=== PATIENT | female | born 1955 | race Caucasian/White ===

== ENCOUNTER 2019-08-01 09:18 | Inpatient (IN) | payer BC, OTHER ==
[~2019-08-01] VITALS: Ht 160 cm; Wt 78.4 kg
[2019-08-01] MEDS ORDERED: MORPHINE SULFATE 4 MG/ML SYR/VIAL IV ONE (10:00)
[2019-08-01] MEDS ORDERED: ONDANSETRON HCL 4 MG/2 ML VIAL IV ONE (10:00)
[2019-08-01] MEDS ORDERED: SODIUM CHLORIDE 0.9% 1,000 ML IV ONE ×2 (12:08)
[2019-08-01 13:26] LABS: Basophils # (auto) 0 uL; Basophils % (auto) 0.3 % (0.0-2.0); Eosinophils # (auto) 0 uL; Hematocrit 39.6 % (36.0-46.0); Hemoglobin 13.9 g/dL (12.2-16.2); Lymphocytes # (auto) 0.6 uL; Lymphocytes % (auto) 3.7 % (10.0-50.0); Mean Corpuscular Hemoglobin 30.9 pg (28.0-32.0); Mean Corpuscular Hgb Conc. 35.2 g/dL (32.0-36.0); Mean Corpuscular Volume 87.9 fL (80.0-100.0); Monocytes # (auto) 0.4 uL; Monocytes % (auto) 2.3 % (0.0-12.0); Neutrophils # (auto) 14.8 uL; Neutrophils % (auto) 93.7 % (37.0-80.0); Platelet Count (auto) 198 10^3/uL (140-450); Red Blood Cells 4.51 10^6/uL (4.0-5.20); Red Cell Distribution Width 13.3 % (11.8-14.3); White Blood Cell 15.8 10^3/uL (4.4-10.8)
[2019-08-01 13:43] LABS: Albumin 3.7 g/dL (3.4-5.0); BUN/Creatinine Ratio 12.5; Calcium 8.6 mg/dL (8.5-10.1); INR 1.02 (0.9-1.15); Partial Thromboplastin Time 26.3 sec (23.64-32.05); Potassium 3.6 mmol/L (3.5-5.1)
[2019-08-01 13:47] LABS: Bilirubin, Total 0.4 mg/dL (0.2-1.0); Total Protein 6.9 g/dL (6.4-8.2)
[2019-08-01] MEDS ORDERED: KETAMINE 50mg/ML 10ml Vial (200mg/10ml) IV ONE (14:00)
[2019-08-01 14:04] LABS: Urine Bacteria FEW /hpf (None Seen); Urine Blood Negative /uL (Negative); Urine Specific Gravity 1.016 (1.001-1.035); Urine WBC 7 /hpf (0 - 5)
[2019-08-01] MEDS ORDERED: DOCUSATE SOD 100 MG CAP PO PRN (17:00)
[2019-08-01] MEDS ORDERED: cefTRIAXone 1GM/50ML D5W 50 ML IV ONE (17:00)
[2019-08-01] MEDS ORDERED: HYDROcodone-ACET 5/325MG TAB PO PRN (17:00)
[2019-08-01] MEDS ORDERED: MORPHINE SULF INJ 2 MG/ML SYRINGE 1ML IV PRN ×2 (17:00)
[2019-08-01] MEDS ORDERED: NITROGLYCERIN 0.4 MG SL TAB SL PRN (17:00)
[2019-08-01] MEDS ORDERED: ONDANSETRON HCL 4 MG/2 ML VIAL IV PRN (17:00)
--- NOTE | 2019-08-01 19:55 | NUR ---
MS admit from [facility] admitted to tele/MS. Patient oriented to SVETLANA HARVEY RN AND GUILLERMO PATTERSON RNS, unit, room, bed, and unit policies regarding patient care and visiting hours. Patient weighed by bedscale and encouraged to call if they need something. All questions and concerns addressed, patient verbalized understanding. Signed: 08/02/19 at 426 by ZOHREH GONSALVES SN <Co-Signature Required> Co-Signed: 08/02/19 at 426 by Svetlana Harvey RN
[2019-08-01 22:00] VITALS: BP 115/80
[2019-08-02 05:41] VITALS: BP 120/64
--- NOTE | 2019-08-02 07:30 | NUR ---
Opening Shift Note Assumed care of patient, who is alert and oriented x4. No S/S of distress/SOB or pain. Patient has a sling to the right arm. Bed is in the lowest position with 2x side rails up for safety. Call light is within reach. Instructed on POC and to call for assist PRN, will continue to monitor for changes Q1hr and PRN.
[2019-08-02 08:00] VITALS: BP 111/66
[2019-08-02 09:00] VITALS: BP 111/66
[2019-08-02] MEDS: cefTRIAXone 1GM/50ML D5W 50 ML IV SCH (09:23)
[2019-08-02] MEDS: PANTOPRAZOLE 40 MG TAB PO SCH (09:23)
--- NOTE | 2019-08-02 11:35 | NUR ---
Numbness to right arm/hand Patient states that she is still feeling numbness to the right arm/hand even after she underwent the reduction of the arm while in the ED.
--- NOTE | 2019-08-02 12:30 | NUR ---
Dr. Mario Mercado at bedside. New orders received, will carry out.
[2019-08-02 13:08] VITALS: BP 117/61
[2019-08-02] MEDS: ACETAMINOPHEN 325 MG TAB PO PRN ×2 (13:09→20:16)
--- NOTE | 2019-08-02 14:36 | NUR ---
Ortho Dr. Horton at bedside. Updated patient on POC.
[2019-08-02 16:47] VITALS: BP 102/62
[2019-08-02] MEDS ORDERED: LORazepam 2MG/ML-1ML VIAL IV PRN (17:30)
--- NOTE | 2019-08-02 19:15 | NUR ---
Opening Shift Note Assumed care of patient, awake and alert. No S/S of distress/SOB or pain. POC discussed and questions answered. Call light is within reach and patient encouraged to call for assistance as needed. Bed locked in lowest position. Will continue to monitor for changes Q1hr and PRN.
[2019-08-02 22:00] VITALS: BP 119/63
[2019-08-03 05:55] VITALS: BP 113/75
[2019-08-03 09:05] VITALS: BP 109/65
[2019-08-03] MEDS: cefTRIAXone 1GM/50ML D5W 50 ML IV SCH (10:20)
[2019-08-03] MEDS: PANTOPRAZOLE 40 MG TAB PO SCH (10:20)
[2019-08-03 13:00] VITALS: BP 118/64
[2019-08-03 16:51] VITALS: BP 103/52
--- NOTE | 2019-08-03 17:25 | NUR ---
ss consult Per consult no PCP. Desi Segundo to see patient for PCP. Addendum: 08/03/19 at 1726 by Desi BISHOP Amended: Links added.
--- NOTE | 2019-08-03 19:30 | NUR ---
RECEIVED PT FROM DAY RN POC REVIEWED
[2019-08-03 21:36] VITALS: BP 104/69
--- NOTE | 2019-08-03 23:43 | NUR ---
awoke amb to bathroom c/o abd pain 02/09 medicated as ordered Addendum: 08/03/19 at 2349 by Iqra Upton RN wrong pt
[2019-08-04 04:34] VITALS: BP 103/61
[2019-08-04 05:44] LABS: Basophils # (auto) 0 uL; Basophils % (auto) 0.8 % (0.0-2.0); Eosinophils # (auto) 0 uL; Eosinophils % (auto) 0.8 % (0.0-7.0); Hematocrit 36.4 % (36.0-46.0); Hemoglobin 12.7 g/dL (12.2-16.2); Lymphocytes # (auto) 1.6 uL; Lymphocytes % (auto) 27.3 % (10.0-50.0); Mean Corpuscular Hemoglobin 31.6 pg (28.0-32.0); Mean Corpuscular Hgb Conc. 34.7 g/dL (32.0-36.0); Mean Corpuscular Volume 90.9 fL (80.0-100.0); Monocytes # (auto) 0.5 uL; Monocytes % (auto) 8.2 % (0.0-12.0); Neutrophils # (auto) 3.7 uL; Neutrophils % (auto) 62.9 % (37.0-80.0); Nucleated Red Blood Cells % 0.1 %; Platelet Count (auto) 191 10^3/uL (140-450); Red Blood Cells 4.01 10^6/uL (4.0-5.20); Red Cell Distribution Width 13.6 % (11.8-14.3); White Blood Cell 5.8 10^3/uL (4.4-10.8)
--- NOTE | 2019-08-04 06:52 | NUR ---
no c/o pain or discomfort all night report given to am nurse poc reviewed
--- NOTE | 2019-08-04 07:35 | NUR ---
OPENING NOTE ASSUMED CARE OF PT. ALERT AND ORIENTED. NO S/S OF SOB/DISTRESS NOTED. SAFETY PRECAUTIONS IN PLACE. BED SET TO LOWEST POSITION/LOCKED. BEDSIDE RAILS UP X2. CALL LIGHT WITHIN REACH. INSTRUCTED PT TO CALL FOR ASSISTANCE. UPDATED ON POC. PT VERBALIZED UNDERSTANDING. WILL CONTINUE TO MONITOR Q1HR AND PRN.
[2019-08-04 09:00] VITALS: BP 117/67
--- NOTE | 2019-08-04 10:42 | NUR ---
OFF UNIT PATIENT OFF UNIT VIA WHEELCHAIR TO MRI. NO S/S OF SOB/DISTRESS NOTED.
[2019-08-04] MEDS: cefTRIAXone 1GM/50ML D5W 50 ML IV SCH (11:23)
[2019-08-04] MEDS: PANTOPRAZOLE 40 MG TAB PO SCH (11:24)
--- NOTE | 2019-08-04 11:59 | NUR ---
Nutrition Assessment Notes please see attached link for complete assessment Est. Needs ABW 65 [id number] kcal (23-25 kcal/kgBW), 65-71 gms pro (1.0-1.1 gms/kgBW). Will continue to monitor pertinent labs and reassess nutrient need prn Addendum: 08/04/19 at [address] Amended: Links added.
[2019-08-04 13:00] VITALS: BP 107/67
[2019-08-04 17:00] VITALS: BP_SYST 112; BP_SYST 122; BP_DIAS 53; BP_DIAS 92
--- NOTE | 2019-08-04 17:25 | NUR ---
assessment Patient is a 63 year old female who is alert and oriented. Patients cognitive abilities are intact. Prior to admission patient lived home alone and functioned independently. Patient informed me she is able to care for her own ADLs. Per patient she will return home to her prior living arrangements or with family post discharge and her family will transport her home. Patient has no need for DME. Patients PCP is Dr Singh. Patient informed me she has good family support. Patient informed me she feels safe returning home on discharge. Patient has no post discharge needs at this time. I informed patient she has a right to speak to a social welfare administrator regarding all care. I informed patient she has a right to participate in any and all discharge planning. Patient does not have a POA and advanced directive. I have offered patient information on POA and advanced directives. I informed the patient the advantages and benefits of having an Advanced Directive. Patient verbalized understanding and agreed to discharge plan. Addendum: 08/04/19 at 1728 by Desi BISHOP Amended: Links added.
[2019-08-04 22:19] VITALS: BP 98/69
[2019-08-05 05:01] VITALS: BP_SYST 114; BP_SYST 155; BP_DIAS 70; BP_DIAS 91
--- NOTE | 2019-08-05 07:00 | NUR ---
ASSESSMENT PERFORMED PATIENT UP IN A CHAIR, ALERT AND ORIENTED. DENIES PAIN OR DISCOMFORT. UNLABORED BREATHING, NO SOB NOTE. PATIENT HAS A SLING ON HER RIGHT ARM. CIRCULATION IN THE FINGERS IS GOOD, BUT PATIENT HAS NO USE OF THE ARM, HAND OR FINGERS. PATIENT HAS NO FELLING OF TOUCH, CANT MOVE FINGERS. THERE IS NO DISCOLORATION.
[2019-08-05 09:00] VITALS: BP_SYST 117; BP_SYST 179; BP_DIAS 115; BP_DIAS 72
[2019-08-05] MEDS: cefTRIAXone 1GM/50ML D5W 50 ML IV SCH (09:00)
--- NOTE | 2019-08-05 09:30 | NUR ---
DR ROCHA CALLED, ORDERED A MRI OF THE RIGHT BRACHIAL PLEXUS. DR AWARE OF THE CURRENT CONDITION OF THE PATIENT. EXPLAINED TO DR THAT PT HAS NO USE OF THE ENTIRE LIMB
--- NOTE | 2019-08-05 09:40 | NUR ---
DR JUÁREZ AT BED SIDE ASSESSING PATIENT, EXPLAINED POC. PATIENT VERBALIZED UNDERSTANDING OF THE NEED FOR ANOTHER MRI BECAUSE PREVIOUS MRI WAS OF THE SHOULDER.
--- NOTE | 2019-08-05 09:45 | NUR ---
CALLED MRI DEPARTMENT TO GET CLARIFICATION ON THE ORDER. MRI OF THE RIGHT BRACHIAL PLEXUS, NOT THE SHOULDER. RIGHT OF WAY WORKER CAME TO THE UNIT AND EXPLAINED TO RN AND DR THAT THE HOSPITAL IS UNABLE TO PERFORM THE PROCEDURE, D/T THE MRI MACHINE DOESN'T HAVE THE RIGHT COIL FOR THE BRACHIAL PLEXUS. DR JUÁREZ EXPLAINED TO MILLINERY WORKER THAT HE NEEDED TO CALL DR JAUREGUI AND EXPLAIN TO HIM THIS, SO DR JAUREGUI CAN MAKE A DECISION BASED ON THIS.
[2019-08-05] MEDS: PANTOPRAZOLE 40 MG TAB PO SCH (10:00)
--- NOTE | 2019-08-05 10:00 | NUR ---
RELATED THE NEW INFORMATION REGARDING THE MRI, TO DR ROCHA
[2019-08-05] MEDS: ACETAMINOPHEN 325 MG TAB PO PRN ×2 (10:52→17:24)
[2019-08-05 13:00] VITALS: BP 113/53
--- NOTE | 2019-08-05 14:49 | NUR ---
PATIENT HAS BEEN INFORMED OF PLAN OF CARE. PATIENT VERBALIZED UNDERSTANDING.
--- NOTE | 2019-08-05 14:50 | NUR ---
CALLED MRI DEPARTMENT CALLED LINE TECHNICIAN TO GET AN UPDATE ON THE POC. SHANIQUA TALKED TO TOBIAS COLLADO CALLED DR JAUREGUI AND EXPLAINED THAT THE HOSPITAL CANT PERFORM THE PROCEDURE.
--- NOTE | 2019-08-05 15:23 | NUR ---
RELATED THE NEW INFORMATION TO PATIENT TO DECREASE ANXIETY D/T UNKNOWN POC
--- NOTE | 2019-08-05 16:00 | NUR ---
DR AJ WOLF AT BEDSIDE. PLAN OF CARE IS TO SEND THE PATIENT TO BE SEEING AN OUTPATIENT. PATIENT WILL BE DISCHARGE HOME TONIGHT. DR ROCHA "COMMUNICATED THE POC TO DR JAUREGUI"
[2019-08-05 17:00] VITALS: BP 129/69
--- NOTE | 2019-08-05 18:45 | NUR ---
PATIENT SITING UP IN BED, DENIES PAIN OR DISCOMFORT, UNLABORED BREATHING. PATIENT IS AWARE OF ALL PLAN OF CARE. BED IN THE LOWEST POSITION FOR SAFETY, CALL LIGHT WITH IN REACH. WILL CONTINUE TO MONITOR
--- NOTE | 2019-08-05 19:13 | NUR ---
CARE ENDORSED TO VEE WESLEY
--- NOTE | 2019-08-05 19:30 | NUR ---
Opening Shift Note Assumed care of patient, awake and alert. No S/S of distress/SOB. Patient complained of pain 3/10 but wanted to wait in her pain medication. Sling on her right arm. Instructed on POC and to call for assist PRN, will continue to monitor for changes Q1hr and PRN.
[2019-08-05 20:00] VITALS: BP 110/70
[2019-08-05 21:19] VITALS: BP 110/70
[2019-08-06] MEDS: ACETAMINOPHEN 325 MG TAB PO PRN ×2 (00:01→09:00)
[2019-08-06 04:58] VITALS: BP 159/66
[2019-08-06 05:01] VITALS: BP 113/73
--- NOTE | 2019-08-06 07:00 | NUR ---
OPENING NOTE PATIENT IN BED, RESTING, AWAKE, ALERT AND ORIENTED. NO S/S OF SOB OR DISTRESS. PATIENT WAS MEDICATED PREVIOUSLY, DENIES PAIN AT THE MOMENT. CALL LIGHT WITH IN REACH, BED IN THE LOWEST POSITION FOR SAFETY. POC EXPLAINED TO PATIENT. WILL CONTINUE TO MONITOR.
[2019-08-06] MEDS: PANTOPRAZOLE 40 MG TAB PO SCH (08:57)
[2019-08-06] MEDS: cefTRIAXone 1GM/50ML D5W 50 ML IV SCH (08:57)
[2019-08-06 09:00] VITALS: BP 114/75
--- NOTE | 2019-08-06 10:51 | NUR ---
UPDATE DR JUÁREZ SAW PATIENT, UPDATED ON POC. NEW ORDERS WILL BE CARRIED OUT.
--- NOTE | 2019-08-06 12:40 | NUR ---
DISCHARGE PATIENT WAS DISCHARGED HOME, ALL INSTRUCTIONS AND FOLLOW UP GIVEN AND EXPLAINED TO PATIENT. IV WAS REMOVED FROM LEFT WRIST, CATHETER INTACT, NO TRAUMA TO THE AREA. PATIENT LEFT THE UNIT VIA WHEEL CHAIR. AWAKE, ALERT AND ORIENTED, DENIES DISCOMFORT OR SOB.
[2019-08-06 13:00] VITALS: BP 121/66
== END 2019-08-06 13:00 | disposition home or self-care (01) | DRG 563 ==
LOC: EDBD 09:18 → ER 09:18 → OVERFLOW 09:19 → WEST WING 19:55
PROVIDERS: ADMIT Nurse Practitioner Acute Care; ATTEND Family Medicine
PROC: 0RSJXZZ Reposition Right Shoulder Joint, External Approach (ICD-10-PCS; principal; 2019-08-01)
DX: S42.251A Displaced fracture of greater tuberosity of right humerus, initial encounter for closed fracture (principal); N30.01 Acute cystitis with hematuria; S14.3XXA Injury of brachial plexus, initial encounter; Y93.01 Activity, walking, marching and hiking; W00.0XXA Fall on same level due to ice and snow, initial encounter; Y92.89 Other specified places as the place of occurrence of the external cause; Y99.8 Other external cause status; Z88.5 Allergy status to narcotic agent; Z88.2 Allergy status to sulfonamides; Z88.0 Allergy status to penicillin; Z80.0 Family history of malignant neoplasm of digestive organs; Z82.49 Family history of ischemic heart disease and other diseases of the circulatory system
CPT/HCPCS: 23650; 36415; 70450; 72125; 73020; 73030; 73060; 73200; 73221; 80053; 81001; 85025; 85610; 85730; 86850; 86900; 86901; 87086; 96365; 96375; G0378; J0696; J2405